=== PATIENT | male | born 1950 | race Caucasian/White ===

== ENCOUNTER 2017-07-20 07:58 | Outpatient (CLI) | payer OTHER ==
[2017-07-20] MEDS ORDERED: IOPAMIDOL-300 100 ML VIAL ONE (08:45)
--- NOTE | 2017-07-20 09:51 | CT Report ---
CT NECK WITH CONTRAST: 07/20/2017 CLINICAL INDICATION: Localized swelling, lump. TECHNIQUE: Axial CT images of the neck were obtained with 80 mL Isovue 300 intravenously. A marker was placed at the site of palpable abnormality identified by the patient in the left neck. COMPARISON: No previous CT is available for comparison. FINDINGS: The tracheal air column is widely patent throughout. The visualized orbital contents and paranasal sinuses are unremarkable. The vascular structures enhance normally. The salivary glands are unremarkable. The thyroid gland is homogeneous. Normal sized anterior and posterior triangle lymph nodes are noted bilaterally. There is no evidence of mass, abscess, or focal abnormality at the site of palpable abnormality identified by the marker in the left lateral neck. The nasopharynx, oropharynx, and hypopharynx appear unremarkable. Limited evaluation of the lung apices demonstrates emphysema and fibrosis, with a 2.1 x 1.3 cm nodule in the right apex. Consider PET CT for further evaluation. Osseous structures demonstrate degenerative changes. IMPRESSION: 1. NO EVIDENCE OF MASS OR FLUID COLLECTION AT THE SITE OF PALPABLE ABNORMALITY IDENTIFIED BY THE PATIENT. NO ADENOPATHY. 2. 2.1 X 1.3 CM NODULE IN THE POSTERIOR RIGHT LUNG APEX. CONSIDER FURTHER EVALUATION WITH PET CT. BACKGROUND EMPHYSEMA IN THE APICES. CT DOSE REDUCTION STATEMENT In accordance with CT protocol optimization, one or more of the following dose reduction techniques were utilized for this exam: automated exposure control, adjustment of mA and/or KV based on patient size, or use of iterative reconstructive technique. TD: 07/20/2017 09:38 WILLIAMS
[2017-07-20] MEDS ORDERED: IOPAMIDOL-300 100 ML VIAL IVP ONE (15:18)
== END 2017-07-20 07:59 | disposition home or self-care (01) ==
LOC: DI 07:58
PROVIDERS: ATTEND Internal Medicine
DX: R22.1 Localized swelling, mass and lump, neck (principal); M54.2 Cervicalgia
CPT/HCPCS: 70491; Q9967

== ENCOUNTER 2017-07-29 11:06 | Outpatient (CLI) | payer OTHER ==
--- NOTE | 2017-07-29 17:22 | CT Report ---
CT CHEST WITHOUT CONTRAST: 07/29/2017 CLINICAL INDICATION: Lung nodule. COMPARISON: Images of the lung apices of neck CT of 07/20/2017, previous chest CT 11/17/2007. TECHNIQUE: Axial CT images of the chest were obtained without intravenous contrast. In accordance with CT protocol optimization, one or more of the following dose reduction techniques were utilized for this exam: Automated exposure control, adjustment of mA and/or KV based on patient size, or use of iterative reconstructive technique. FINDINGS: The heart and great vessels demonstrate mild atherosclerotic calcification. No hilar or mediastinal lymphadenopathy is appreciated. There is a spiculated nodule, measuring 2.1 x 1.6 cm, in the right posterior apex. Emphysema is present. No effusion or pneumothorax is seen. Limited evaluation of upper abdominal structures demonstrates normal adrenal glands. Calcification posterior to the liver is stable from previous chest CT of 11/17/2007. Osseous structures demonstrate postoperative changes of previous cardiac surgery and degenerative changes. IMPRESSION: PERSISTENT RIGHT APICAL LUNG NODULE. NO ADENOPATHY OR ADDITIONAL NODULE IS IDENTIFIED. FURTHER EVALUATION WITH EITHER PET/CT OR BIOPSY WOULD BE RECOMMENDED. TD: 07/29/2017 12:16
== END 2017-07-29 11:07 | disposition home or self-care (01) ==
LOC: DI 11:06
PROVIDERS: ATTEND Internal Medicine
DX: R91.1 Solitary pulmonary nodule (principal)
CPT/HCPCS: 71250

== ENCOUNTER 2017-08-11 07:16 | Outpatient (CLI) | payer OTHER ==
--- NOTE | 2017-08-11 17:26 | CT Report ---
CHEST CT WITHOUT CONTRAST: 08/11/2017 COMPARISON: 07/20/2017 and 07/29/2017. TECHNIQUE: Axial noncontrast images of the chest with multiplanar reconstructions. In accordance with CT protocol optimization, one or more of the following dose reduction techniques were utilized for this exam: Automated exposure control, adjustment of mA and/or KV based on patient size, or use of iterative reconstructive technique. FINDINGS: The 2 x 1.5 cm spiculated right apical mass has not changed in appearance since the CT 2 weeks prior. Emphysematous changes are present in the lungs. No other nodules, effusion or pneumothorax. No pathologic hilar or mediastinal adenopathy. Normal sized aorta. No cardiomegaly. Oval rim calcified 3.6 x 2.7 cm nodule posterior to the liver, inferior to the hemidiaphragm and adjacent to the lateral abdominal wall has not changed since the prior study. Upper abdomen, otherwise unremarkable. IMPRESSION: THE SUSPICIOUS RIGHT UPPER LOBE SPICULATED MASS HAS NOT CHANGED IN APPEARANCE COMPARED TO THE STUDY PERFORMED 2 WEEKS EARLIER. FURTHER EVALUATION BY PET IMAGING IS ADVISED TO EXCLUDE MALIGNANCY. TD: 08/11/2017 15:38 WILLIAMS
== END 2017-08-11 07:17 | disposition home or self-care (01) ==
LOC: DI 07:16
PROVIDERS: ATTEND Internal Medicine
DX: R91.8 Other nonspecific abnormal finding of lung field (principal)
CPT/HCPCS: 71250

== ENCOUNTER 2017-12-09 08:27 | Outpatient (CLI) | payer OTHER | END 2017-12-09 08:28 | disposition home or self-care (01) | LOC: DI 08:27 | PROVIDERS: ATTEND Internal Medicine Pulmonary Disease | DX: I34.2 Nonrheumatic mitral (valve) stenosis (principal) | CPT/HCPCS: 93306 ==